=== PATIENT | female | born 1980 | race Caucasian/White ===

== ENCOUNTER 2020-05-18 06:56 | Emergency (ER) | payer OTHER ==
[2020-05-18 07:03] VITALS: TEMP 98.3
--- NOTE | 2020-05-18 07:44 | ED ---
General Adult HPI - General Source: patient, RN notes reviewed Mode of arrival: ambulatory Limitations: no limitations <Panda Willard - Last Filed: 05/18/20 08:24> <Luci Marrufo - Last Filed: 05/20/20 23:23> - General Chief complaint: Dental/Oral Stated complaint: Dental/Oral Time Seen by Provider: 05/18/20 07:04 - History of Present Illness Initial comments: 39-year-old female currently 25 weeks presents to the emergency room for a chief complaint of mouth pain. Patient reports that for the past 5 days she has had sores on her tongue and cheeks. States they're also on the top of her mouth. Patient denies any constitutional symptoms. Denies fevers. Patient states she has never had this before. Patient denies any lesions on the palms or soles. Denies any other contacts with these issues. Patient states she has got a to urgent cares. She reports that they were not sure what this was. She is trying nystatin which was started yesterday but otherwise is not draining any other remedies.Patient has no other complaints at this time including shortness of breath, chest pain, abdominal pain, nausea or vomiting, headache, or visual changes. (Panda Willard) - Related Data Previous Rx's Medication Instructions Recorded Acyclovir 400 mg PO Q4H 7 Days #35 tablet 05/18/20 Allergies Allergy/AdvReac Type Severity Reaction Status Date / Time No Known Allergies Allergy Verified 05/18/20 07:03 Review of Systems ROS Other: All systems not noted in ROS Statement are negative. <Panda Willard - Last Filed: 05/18/20 08:24> ROS Other: All systems not noted in ROS Statement are negative. <Luci Marrufo - Last Filed: 05/20/20 23:23> ROS Statement: Those systems with pertinent positive or pertinent negative responses have been documented in the HPI. Past Medical History Past Medical History: No Reported History Past Surgical History: Orthopedic Surgery Additional Past Surgical History / Comment(s): lt knee Past Psychological History: No Psychological Hx Reported Smoking Status: Never smoker Past Alcohol Use History: None Reported Past Drug Use History: None Reported <Panda Willard - Last Filed: 05/18/20 08:24> General Exam Limitations: no limitations General appearance: alert, in no apparent distress Head exam: Present: atraumatic Eye exam: Present: normal appearance, PERRL, EOMI. Absent: scleral icterus, conjunctival injection ENT exam: Present: mucous membranes moist. Absent: normal oropharynx (Patient has multiple sores. One noted on the dorsum of the tongue. Patient also has ulcers on the hard left side of the hard palate as well as the left cheek. Throat does appear erythematous however patent, no edema) Neck exam: Present: normal inspection, full ROM. Absent: tenderness Respiratory exam: Present: normal lung sounds bilaterally. Absent: respiratory distress, wheezes Cardiovascular Exam: Present: regular rate, normal rhythm, normal heart sounds GI/Abdominal exam: Present: soft, other (gravid abdomen) <Panda Willard - Last Filed: 05/18/20 08:24> Course Vital Signs 05/18/20 05/18/20 05/18/20 06:57 08:03 08:36 Temperature 98.3 F 98.3 F Pulse Rate 99 100 Respiratory 20 18 18 Rate Blood Pressure 114/70 100/61 O2 Sat by Pulse 97 97 Oximetry Medical Decision Making <Panda Willard - Last Filed: 05/18/20 08:24> <Luci Marrufo - Last Filed: 05/20/20 23:23> - Medical Decision Making Vitals are stable. Physical exam is documented. Pertinent for ulcerations noted of the left side hard palate, left buccal mucosa, dorsum of tongue. Dr. Marrufo also evaluated patient. At this time likely viral in nature. We will start patient on acyclovir. Negative for strep and Covid. Patient guido is prescribed viscous lidocaine. Discussed mixing with Maalox and Benadryl to create Magic mouthwash. Discussed not swallowing this. She will take Tylenol for pain. She will follow up with her dentist as well as [employer] RN. She will return here for any worsening symptoms. (Panda Willard) I was available for consultation in the emergency department. The history and physical exam were done by the midlevel provider. I was consulted for this patients care. I reviewed the case with the midlevel provider and based on their presentation of the patient, I agree with the assessment, medical decision making and plan of care as documented. Chart was dictated using [employer] dictation software. Attempts were made to correct any dictation errors however some typographical errors may persist. (Luci Marrufo) - Lab Data Lab Results 05/18/20 05/18/20 Range/Units 07:35 07:35 Coronavirus (PCR) Not Detected (Not Detectd) Group A Strep Rapid Negative (Negative) Disposition Is patient prescribed a controlled substance at d/c from ED?: No Time of Disposition: 07:44 <Panda Willard - Last Filed: 05/18/20 08:24> <Luci Marrufo - Last Filed: 05/20/20 23:23> Clinical Impression: Oral ulceration Disposition: HOME SELF-CARE Condition: Good Instructions (If sedation given, give patient instructions): Canker Sores (ED) Additional Instructions: Please take Acyclovir as directed. Use Magic Mouth wash every 4-6 hours as needed. Follow up with dentist and OBGYN. Return to the emergency room for any worsening symptoms. Magic Mouthwash: Ingredients: 5 mL lidocaine 5 mL liquid benadryl 5 mL maalox Directions: mix all ingredients together. Swish for one minute and spit. DO NOT SWALLOW. Prescriptions: Acyclovir 400 mg PO Q4H 7 Days #35 tablet Referrals: Del Woody MD [Primary Care Provider] - 1-2 days
[2020-05-18 08:19] VITALS: RESP 18
[2020-05-18 08:38] VITALS: BP 100/61; PULSE 100
== END 2020-05-18 08:39 | disposition home or self-care (01) ==
LOC: EC 06:56
DX: O99.891 Other specified diseases and conditions complicating pregnancy (principal); K12.1 Other forms of stomatitis; Z20.822 Contact with and (suspected) exposure to COVID-19; Z3A.25 25 weeks gestation of pregnancy
CPT/HCPCS: 87081; 87430; 87635; 99283